=== PATIENT | male | born 1945 | race Caucasian/White ===

== ENCOUNTER → 2021-02-24 | Outpatient (CLI) | payer MEDICARE, OTHER ==
[~2021-02-24] MED LIST: CALTRATE 600 +1 TAB PO; CLOPIDOGREL PO; ECOTRIN325 MG PO; LIPITOR 80MG80 MG PO; LIPITOR40 MG PO; LISINOPRIL PO; LOPRESSOR 550 MG/TAB PO; LOVAZA1 GM PO; LUPRON5 MG/M1 SC; METFORMIN HCL500 M1 PO; NIFEDIPINE ER90 MG PO; VITAMIN B-1000 MCG/T PO; VITAMIN D2000 I1 PO; ZETIA10 MG PO; ZOCOR80 MG PO
== END ==
LOC: COL.RAD 07:02
DX: G31.9 Degenerative disease of nervous system, unspecified (principal); I67.82 Cerebral ischemia; H05.233 Hemorrhage of bilateral orbit